=== PATIENT | female | born 1995 ===

== ENCOUNTER 2017-10-06 18:07 | Emergency (ER) | payer SELFPAY, OTHER ==
[2017-10-06] MEDS: IBUPROFEN 600 MG TAB PO (18:44)
[2017-10-06] MEDS: ACETAMINOPHEN 325 MG TAB PO (18:44)
== END 2017-10-06 20:07 | disposition home or self-care (01) ==
LOC: FTE 18:07
DX: S93.402A Sprain of unspecified ligament of left ankle, initial encounter (principal); W19.XXXA Unspecified fall, initial encounter; Y92.9 Unspecified place or not applicable
CPT/HCPCS: 73610; 73630-LT; 99283-25